=== PATIENT | male | born 1950 | race Caucasian/White ===

== ENCOUNTER → 2017-01-31 | Outpatient (CLI) | payer MEDICARE ==
[2017-01-31 12:04] LABS: BLOOD, URINE LARGE (NEG); GLUCOSE,URINE NEG (NEG); KETONE, URINE 40 mg/dL (NEG); NITRITE,URINE NEG (NEG)
[2017-01-31 12:04] LABS: AUTOMATED NEUTROPHIL # 16.5 TH/MM3 (1.8-7.7); BASOPHIL # 0.1 TH/MM3 (0-0.2); BASOPHIL % 0.5 % (0.0-2.0); EOSINOPHIL % 0.1 % (0.0-4.0); HEMATOCRIT 43.1 % (39.0-51.0); LYMPH % 3.9 % (9.0-44.0); LYMPHOCYTE # 0.7 TH/MM3 (1.0-4.8); MEAN CELL VOLUME 89.9 FL (80.0-100.0); MEAN CORPUSCULAR HEMOGLOBIN 30.7 PG (27.0-34.0); MEAN CORPUSCULAR HGB CONC 34.2 % (32.0-36.0); MONO % 6.6 % (0.0-8.0); NEUT % 88.9 % (16.0-70.0); PLATELET COUNT 171 TH/MM3 (150-450); RED CELL DISTRIBUTION WIDTH 11.7 % (11.6-17.2); WHITE BLOOD COUNT 18.5 TH/MM3 (4.0-11.0)
[2017-01-31 12:10] LABS: HEMO FLAGS AUTO DIFF
[2017-01-31 12:14] LABS: CHLORIDE 103 MEQ/L (98-107); POTASSIUM 3.8 MEQ/L (3.5-5.1); SODIUM (NA) 138 MEQ/L (136-145)
[2017-01-31 12:16] LABS: METHOD OF COLLECTION CLEAN CATCH; URINE COLOR YELLOW (YELLW/STRAW)
[2017-01-31 12:17] LABS: BACTERIA, URINE MANY /hpf; WBC, URINE 100-200 /hpf (0-5)
[2017-01-31 12:18] LABS: COMMENT2 (UR) MUCOUS PRESENT; SQUAMOUS EPITHELIAL CELL URINE 0-5 /hpf (0-5)
[2017-01-31 12:21] LABS: GLUCOSE,FASTING 126 MG/DL (74-99)
[2017-01-31 12:22] LABS: AMYLASE 38 U/L (25-115); ANION GAP 8 MEQ/L (5-15); BICARBONATE 27.2 MEQ/L (21.0-32.0); BLOOD UREA NITROGEN 14 MG/DL (7-18)
[2017-01-31 12:24] LABS: ALT (GPT) 33 U/L (12-78); AST (GOT) 19 U/L (15-37); GLOMERULAR FILTRATION RATE 74 ML/MIN (>89)
[2017-01-31 12:27] LABS: ALKALINE PHOSPHATASE 75 U/L (45-117)
[2017-01-31 12:30] LABS: BANDS 21 % (0-6); NEUTROPHIL # MANUAL DIFF 17.9 TH/MM3 (1.8-7.7); PLATELET ESTIMATE SMEAR NORMAL (NORMAL); PLATELET MORPHOLOGY NORMAL (NORMAL); POLYS (SEG NEUTROPHILS) 76 % (16-70); SCAN/DIFF FINAL DIFF MANUAL; WBC DIFF SAMPLE 100
== END ==
LOC: PLAB 11:08
PROVIDERS: ATTEND Family Medicine
DX: R10.9 Unspecified abdominal pain (principal); R50.9 Fever, unspecified; N39.0 Urinary tract infection, site not specified; B96.89 Other specified bacterial agents as the cause of diseases classified elsewhere
CPT/HCPCS: 36415; 80053; 81001; 82150; 83690; 85007; 85027; 87040; 87077; 87086; 87186